=== PATIENT | female | born 1990 | race Hispanic/Latino ===

== ENCOUNTER 2020-05-22 06:52 | Emergency (ER) | payer OTHER ==
[~2020-05-22] VITALS: Ht 162.6 cm; Wt 65.0 kg
[2020-05-22] MEDS ORDERED: NS 1,000 ML IV ONE (07:15)
[2020-05-22 07:52] LABS: BASO # 0.1 10^3/uL (0.0-0.2); BASO % 0.5 % (0.0-1.0); EOS # 0.1 10^3/uL (0.0-0.5); HEMATOCRIT 37.3 % (36.0-47.0); HEMOGLOBIN 11.9 g/dl (12.0-15.5); LYMPH # 1.1 10^3/uL (1.5-5.0); LYMPH % 9.4 % (24.0-44.0); MEAN CORPUSCULAR HEMOGLOBIN 26.2 pg (27.0-33.0); MEAN CORPUSCULAR HGB CONC 31.9 g/dl (32.0-36.5); MEAN CORPUSCULAR VOLUME 82.2 fl (80.0-96.0); MONO # 0.8 10^3/uL (0.0-0.8); MONO % 6.9 % (0.0-5.0); NEUTROPHILS # 9.4 10^3/uL (1.5-8.5); NEUTROPHILS % 81.9 % (36.0-66.0); PLATELET COUNT, AUTOMATED 275 10^3/uL (150-450); RED BLOOD COUNT 4.54 10^6/uL (4.00-5.40); WHITE BLOOD COUNT 11.5 10^3/uL (4.0-10.0)
[2020-05-22] MEDS ORDERED: KETOROLAC 30 MG/ML 1ML VIAL IV ONE (08:00)
[2020-05-22] MEDS ORDERED: KETOROLAC 30 MG/ML 1ML VIAL As Ordered ONE ×2 (08:01→08:03)
[2020-05-22 08:18] LABS: ALBUMIN 3.5 GM/DL (3.2-5.2); ALT/SGPT 15 U/L (12-78); BILIRUBIN,DIRECT 0.1 MG/DL (0.0-0.2); BILIRUBIN,TOTAL 0.4 MG/DL (0.2-1.0); CK-MB VALUE MASS < 1.0 NG/ML (<3.6); CPK CREATINE PHOSPHOKINASE 95 U/L (26-192); LIPASE 72 U/L (73-393); MB/CK RELATIVE INDEX 1.05 (< OR =4); TOTAL PROTEIN 6.9 GM/DL (6.4-8.2); TROPONIN I < 0.02 NG/ML (< 0.10)
[2020-05-22] MEDS ORDERED: TRAZ-186 PO (08:38)
[2020-05-22] MEDS ORDERED: LEXA1TAB2 PO (08:38)
[2020-05-22] MEDS ORDERED: ISOVUE-370 76% 100ML VIAL As Ordered ONE (08:45)
--- NOTE | 2020-05-22 09:05 | REP ---
PELVIC SONOGRAPHY: HISTORY: Severe cramping. FINDINGS: Transabdominal and transvaginal scanning are performed. Uterine dimensions are normal and 7.1 x 4.4 x 4.6 cm. Endometrial echo 0.9 cm thick. There is a Nabothian cyst in the cervix. Visualized urinary bladder carmona are smooth. There is a mild amount of cul-de-sac fluid consistent with physiologic fluid. Normal ovaries are seen. The right ovary measures 2.7 x 1.8 x 2.2 cm. Left ovary dimensions are 3.4 x 1.9 x 1.9 cm. Doppler flow is present in both ovaries. Resistive indices are 0.5 3.47 on the right and left respectively. IMPRESSION: No significant abnormality. Physiologic fluid in the cul-de-sac. Small Nabothian cyst. Normal ovaries and uterus. Electronically Signed by Sandro Barton MD 05/22/2020 11:16 A
[2020-05-22 09:26] VITALS: BP 100/62
--- NOTE | 2020-05-22 09:33 | REP ---
CT ABDOMEN AND PELVIS WITH IV CONTRAST: TECHNIQUE: Axial contrast-enhanced images from the lung bases to the pubic symphysis using 100 mL Isovue-370 intravenous contrast material with multiplanar reformations. The visualized lung bases are clear. The liver, spleen, adrenals, pancreas and kidneys are normal in appearance. There is no abdominal aortic aneurysm. There is no adenopathy. There is no free air. There is no bowel wall thickening. The appendix is normal. No pelvic mass is seen. Mild free fluid in the pelvis is likely physiologic. Urinary bladder is not well distended and not well evaluated. IMPRESSION: Mild free fluid in the pelvis is likely physiologic. Normal appendix. No acute findings. Electronically Signed by Tito Chu MD 05/23/2020 04:00 P
== END 2020-05-22 09:46 | disposition home or self-care (01) ==
LOC: M ED 06:52 → EDBD 06:52 → M ED 09:46
DX: N94.6 Dysmenorrhea, unspecified (principal); I10 Essential (primary) hypertension; Z79.899 Other long term (current) drug therapy
CPT/HCPCS: 74177; 76830; 76856; 80047; 80076; 81001; 82550; 82553; 83690; 84484; 84702; 85025; 93976; 96361; 96374; 99284; J1885; Q9967

== ENCOUNTER 2021-01-17 17:45 | Emergency (ER) | payer OTHER ==
[~2021-01-17] VITALS: Ht 162.6 cm; Wt 74.5 kg
[~2021-01-17 17:45] MED LIST: LEXA1TAB2 PO; TRAZ-186 PO
--- OUTSIDE RECORDS SUMMARY | 2021-01-17 17:51 | CCD ---
Author Author [facility] Address Unknown Phone Unavailable Support Name Relationship Address Phone [facility] Next Of Kin [address] [place] [address] Unavailable Re-disclosure Warning The records that you are about to access may contain information from federally-assisted alcohol or drug abuse programs. If such information is present, then the following federally mandated warning applies: This information has been disclosed to you from records protected by federal confidentiality rules (42 CFR part 2). The federal rules prohibit you from making any further disclosure of this information unless further disclosure is expressly permitted by the written consent of the person to whom it pertains or as otherwise permitted by 42 CFR part 2. A general authorization for the release of medical or other information is NOT sufficient for this purpose. The Federal rules restrict any use of the information to criminally investigate or prosecute any alcohol or drug abuse patient.The records that you are about to access may contain highly sensitive health information, the redisclosure of which is protected by Article 27-F of the [facility] Public Health law. If you continue you may have access to information: Regarding HIV / AIDS; Provided by facilities licensed or operated by the [facility] Office of Mental Health; or Provided by the [facility] Office for People With Developmental Disabilities. If such information is present, then the following [facility] mandated warning applies: This information has been disclosed to you from confidential records which are protected by state law. State law prohibits you from making any further disclosure of this information without the specific written consent of the person to whom it pertains, or as otherwise permitted by law. Any unauthorized further disclosure in violation of state law may result in a fine or custodial sentence or both. A general authorization for the release of medical or other information is NOT sufficient authorization for further disc losure. Insurance Providers Payer name Policy type / Coverage type Policy ID Covered green party ID Covered green party's relationship to jackson Policy Jackson Plan Information [facility] [employer] [id number]
[2021-01-17] MEDS ORDERED: ACETAMINOPHEN 500 MG TAB PO ONE (18:45)
--- OUTSIDE RECORDS SUMMARY | 2021-01-17 18:52 | CCD ---
Author Author [facility] Organization [facility] Address Unknown Phone Unavailable Support Name Relationship Address Phone [facility] Next Of Kin [address] [place], [place] [id number] [facility] Next Of Kin [address] [place] [address] Unavailable Re-disclosure Warning The records that you [...] is protected by Article 27-F of the [facility] Public Health law. If you continue you may have access to information: Regarding HIV / AIDS; Provided by facilities licensed or operated by the [facility] Office of Mental Health; or Provided by the [facility] Office for People With Developmental Disabilities. If such information is present, then the following [facility] mandated warning applies: This information has [...] law may result in a fine or longterm sentence or both. A general authorization for the release of medical or other information is NOT sufficient authorization for further disc losure. Insurance Providers Payer name Policy type / Coverage type Policy ID Covered libertarian ID Covered libertarian's relationship to jackson Policy Jackson Plan Information [facility] [employer] [id number]
[2021-01-17 20:10] VITALS: BP 137/83
== END 2021-01-17 20:19 | disposition home or self-care (01) ==
LOC: M ED 17:45
DX: J06.9 Acute upper respiratory infection, unspecified (principal); B34.9 Viral infection, unspecified; F31.9 Bipolar disorder, unspecified; Z82.49 Family history of ischemic heart disease and other diseases of the circulatory system; Z79.899 Other long term (current) drug therapy
CPT/HCPCS: 87804; 87880; 99284; U0003

== ENCOUNTER 2021-09-03 10:01 | Emergency (ER) | payer OTHER ==
[~2021-09-03] VITALS: Ht 162.6 cm; Wt 76.2 kg
[2021-09-03 10:02] VITALS: BP 143/88
[2021-09-03] MEDS ORDERED: ACETAMINOPHEN 500 MG TAB PO ONE (11:55)
[2021-09-03 12:14] VITALS: O2SAT 100
== END 2021-09-03 12:51 | disposition home or self-care (01) ==
LOC: M ED 10:01
DX: J06.9 Acute upper respiratory infection, unspecified (principal); B34.9 Viral infection, unspecified; Z20.822 Contact with and (suspected) exposure to COVID-19; R05.9 Cough, unspecified; R51.9 Headache, unspecified; F32.9 Major depressive disorder, single episode, unspecified; F41.9 Anxiety disorder, unspecified; Z79.899 Other long term (current) drug therapy

== ENCOUNTER 2022-07-23 17:35 | Inpatient (IN) | payer OTHER ==
[~2022-07-23] VITALS: Ht 162.6 cm; Wt 71.0 kg
[2022-07-23 19:45] LABS: HEMATOCRIT 33.1 % (36.0-47.0); MEAN CORPUSCULAR HEMOGLOBIN 23.9 pg (27.0-33.0); MEAN CORPUSCULAR HGB CONC 30.2 g/dl (32.0-36.5); MEAN CORPUSCULAR VOLUME 79.2 fl (80.0-96.0); PLATELET COUNT, AUTOMATED 317 10^3/uL (150-450); RED BLOOD COUNT 4.18 10^6/uL (4.00-5.40); WHITE BLOOD COUNT 6.6 10^3/uL (4.0-10.0)
[2022-07-23 20:14] LABS: RSV AMPLIFICATION NEGATIVE (NEGATIVE)
[2022-07-23 20:36] LABS: ACETAMINOPHEN LEVEL < 2.0 UG/ML (10.0-30.0); ALBUMIN 3.5 GM/DL (3.2-5.2); ALT/SGPT 22 U/L (12-78); BILIRUBIN,DIRECT 0.1 MG/DL (0.0-0.2); BILIRUBIN,TOTAL 0.2 MG/DL (0.2-1.0); BLOOD UREA NITROGEN 12 MG/DL (7-18); CALCIUM LEVEL 8.6 MG/DL (8.5-10.1); CARBON DIOXIDE LEVEL 24 MEQ/L (21-32); CHLORIDE LEVEL 109 MEQ/L (98-107); CREATININE FOR GFR 0.78 MG/DL (0.55-1.30); ETHYL ALCOHOL (ETHANOL) 0.006 % (0.000-0.010); GLOMERULAR FILTRATION RATE > 60.0 (>60); GLUCOSE, FASTING 93 MG/DL (70-100); SALICYLATE LEVEL < 1.7 MG/DL (5.0-30.0); SODIUM LEVEL 139 MEQ/L (136-145); TOTAL PROTEIN 6.9 GM/DL (6.4-8.2)
[2022-07-23 21:04] LABS: HCG, SERUM QUALITATIVE NEGATIVE (NEGATIVE)
[2022-07-23] MEDS ORDERED: PEPC10TA6 PO (22:11)
[2022-07-23] MEDS ORDERED: TRAZ-186 PO (22:11)
[2022-07-23] MEDS ORDERED: HOME MED LIST COMPLETE! XX SCH (22:15)
[2022-07-23 22:32] LABS: AMPHETAMINES LEVEL URINE NEGATIVE (NEGATIVE); BARBITURATES URINE NEGATIVE (NEGATIVE); BENZODIAZEPINES URINE NEGATIVE (NEGATIVE); CANNABINOIDS URINE NEGATIVE (NEGATIVE); COCAINE METABOLITE URINE NEGATIVE (NEGATIVE); METHADONE URINE NEGATIVE (NEGATIVE); OPIATES URINE NEGATIVE (NEGATIVE); PHENCYCLIDINE URINE NEGATIVE (NEGATIVE)
[2022-07-24] MEDS ORDERED: traZODone 50 MG TAB PO ONE ×2 (00:30→01:20)
[2022-07-24] MEDS ORDERED: FAMOTIDINE 20 MG TAB PO ONE (00:35)
[2022-07-24] MEDS ORDERED: ESCITALOPRAM OXALATE 10 MG TAB (LEXAPRO) PO ONE (00:35)
[2022-07-24] MEDS: ESCITALOPRAM OXALATE 10 MG TAB (LEXAPRO) PO SCH (10:41)
[2022-07-24] MEDS: FAMOTIDINE 20 MG TAB PO SCH (10:41)
[2022-07-24] MEDS ORDERED: traZODone 50 MG TAB PO SCH (21:00)
[2022-07-24] MEDS ORDERED: diphenhydrAMINE 25MG CAP PO ONE (21:50)
[2022-07-25] MEDS: NICOTINE 21MG/24HR 1 EA TRANSDERMAL TD SCH (09:00)
[2022-07-25] MEDS: FAMOTIDINE 20 MG TAB PO SCH (11:49)
[2022-07-25] MEDS: ESCITALOPRAM OXALATE 10 MG TAB (LEXAPRO) PO SCH (11:50)
[2022-07-25] MEDS ORDERED: MAALOX 30 ML SUSP *UDC PO PRN (14:10)
[2022-07-25] MEDS ORDERED: MOM 30ML SUSPENSION UDC PO PRN (14:10)
[2022-07-25] MEDS ORDERED: traZODone 50 MG TAB PO PRN (14:10)
[2022-07-25] MEDS ORDERED: FAMOTIDINE 20 MG TAB PO PRN (14:10)
[2022-07-25 16:25] VITALS: BP 118/71
[2022-07-25] MEDS: IBUPROFEN 400MG TAB PO PRN (20:28)
[2022-07-25] MEDS ORDERED: traZODone 50 MG TAB PO SCH (21:00)
[2022-07-26 06:34] VITALS: BP 138/70
[2022-07-26] MEDS: NICOTINE 21MG/24HR 1 EA TRANSDERMAL TD SCH (08:49)
[2022-07-26] MEDS ORDERED: ESCITALOPRAM OXALATE 10 MG TAB (LEXAPRO) PO SCH (09:00)
[2022-07-26] MEDS: IBUPROFEN 400MG TAB PO PRN (12:03)
[2022-07-26] MEDS: traZODone 100 MG TAB PO SCH (21:28)
[2022-07-27 06:25] VITALS: BP 110/62
[2022-07-27 08:25] LABS: PERCENT SATURATION 3.9 % (13.2-45.0)
[2022-07-27] MEDS: PARoxetine 20MG TABLET PO SCH (08:58)
[2022-07-27 19:46] VITALS: BP 142/83
[2022-07-27] MEDS: traZODone 100 MG TAB PO SCH (21:15)
[2022-07-27] MEDS: diphenhydrAMINE 25MG CAP PO PRN (21:16)
[2022-07-28 06:08] VITALS: BP 106/64
[2022-07-28] MEDS: PARoxetine 20MG TABLET PO SCH (09:38)
[2022-07-28 11:56] LABS: FOLATE 9.6 NG/ML (>5.4)
[2022-07-28 16:40] VITALS: BP 105/56
[2022-07-28] MEDS ORDERED: traZODone 100 MG TAB PO SCH (21:00)
[2022-07-29 06:19] VITALS: BP 119/58
[2022-07-29] MEDS: buPROPion **XL** TABLET 150MG (WELLBUTRIN XL) PO SCH (09:16)
[2022-07-29 16:54] VITALS: BP 116/59
[2022-07-29] MEDS: PARoxetine 20MG TABLET PO SCH (21:55)
[2022-07-29] MEDS: traZODone 50 MG TAB PO SCH (21:56)
[2022-07-30 07:20] VITALS: BP 120/74
[2022-07-30] MEDS: buPROPion **XL** TABLET 150MG (WELLBUTRIN XL) PO SCH (08:58)
[2022-07-30] MEDS: hydrOXYzine 50 MG TAB PO SCH ×2 (12:14→18:06)
[2022-07-30 16:30] VITALS: BP 127/73
[2022-07-30] MEDS: traZODone 50 MG TAB PO SCH (21:54)
[2022-07-30] MEDS: PARoxetine 20MG TABLET PO SCH (21:54)
[2022-07-30] MEDS: ARIPiprazole 2 MG TAB PO SCH (21:54)
[2022-07-31] MEDS: hydrOXYzine 50 MG TAB PO SCH ×5 (00:22→23:54)
[2022-07-31 07:02] VITALS: BP 130/62
[2022-07-31 08:56] LABS: CHOLESTEROL RISK RATIO 4.127 (<5)
[2022-07-31] MEDS: buPROPion **XL** TABLET 150MG (WELLBUTRIN XL) PO SCH (09:09)
[2022-07-31 18:18] VITALS: BP 124/63
[2022-07-31] MEDS: PARoxetine 20MG TABLET PO SCH (20:28)
[2022-07-31] MEDS: ARIPiprazole 2 MG TAB PO SCH (20:28)
[2022-07-31] MEDS: traZODone 50 MG TAB PO SCH (20:28)
[2022-08-01] MEDS: hydrOXYzine 50 MG TAB PO SCH ×3 (05:48→18:10)
[2022-08-01 06:12] VITALS: BP 109/56
[2022-08-01] MEDS: buPROPion **XL** TABLET 150MG (WELLBUTRIN XL) PO SCH (09:13)
[2022-08-01 16:14] VITALS: BP 126/70
[2022-08-01] MEDS: ARIPiprazole 2 MG TAB PO SCH (20:32)
[2022-08-01] MEDS: PARoxetine 20MG TABLET PO SCH (20:32)
[2022-08-01] MEDS: traZODone 50 MG TAB PO SCH (20:33)
[2022-08-02] MEDS: hydrOXYzine 50 MG TAB PO SCH ×4 (00:09→18:07)
[2022-08-02 06:25] VITALS: BP 118/56
[2022-08-02] MEDS: buPROPion **XL** TABLET 150MG (WELLBUTRIN XL) PO SCH (09:59)
[2022-08-02 16:09] VITALS: BP 120/78
[2022-08-02] MEDS: PARoxetine 20MG TABLET PO SCH (20:50)
[2022-08-02] MEDS: ARIPiprazole 2 MG TAB PO SCH (20:50)
[2022-08-02] MEDS: traZODone 50 MG TAB PO SCH (20:50)
[2022-08-03] MEDS: hydrOXYzine 50 MG TAB PO SCH ×2 (00:37→06:01)
[2022-08-03 06:28] VITALS: BP 116/75
[2022-08-03] MEDS: buPROPion **XL** TABLET 150MG (WELLBUTRIN XL) PO SCH (08:32)
[2022-08-03] MEDS: diphenhydrAMINE 25MG CAP PO PRN (11:38)
[2022-08-03 16:15] VITALS: BP 138/70
[2022-08-03] MEDS: PARoxetine 20MG TABLET PO SCH (21:10)
[2022-08-03] MEDS: traZODone 50 MG TAB PO SCH (21:10)
[2022-08-03] MEDS: ARIPiprazole 2 MG TAB PO SCH (21:10)
[2022-08-04 06:03] VITALS: BP 104/57
[2022-08-04] MEDS: buPROPion **XL** TABLET 150MG (WELLBUTRIN XL) PO SCH (07:36)
[2022-08-04] MEDS: diphenhydrAMINE 25MG CAP PO PRN (08:54)
[2022-08-04] MEDS: hydrOXYzine 50 MG TAB PO PRN (13:21)
[2022-08-04 18:13] VITALS: BP 118/67
[2022-08-04] MEDS: traZODone 50 MG TAB PO SCH (20:28)
[2022-08-04] MEDS: PARoxetine 20MG TABLET PO SCH (20:28)
[2022-08-04] MEDS: ARIPiprazole 2 MG TAB PO SCH (20:28)
[2022-08-04] MEDS ORDERED: traZODone 50 MG TAB PO SCH (21:00)
[2022-08-05 06:10] VITALS: BP 113/66
[2022-08-05] MEDS: hydrOXYzine 50 MG TAB PO PRN ×3 (06:53→20:13)
[2022-08-05] MEDS: buPROPion **XL** TABLET 150MG (WELLBUTRIN XL) PO SCH (08:39)
[2022-08-05 17:39] VITALS: BP 134/69
[2022-08-05] MEDS: ARIPiprazole 2 MG TAB PO SCH (20:59)
[2022-08-05] MEDS: traZODone 50 MG TAB PO SCH (20:59)
[2022-08-05] MEDS: PARoxetine 20MG TABLET PO SCH (20:59)
[2022-08-06] MEDS: hydrOXYzine 50 MG TAB PO PRN ×3 (06:09→19:03)
[2022-08-06 06:57] VITALS: BP 112/78
[2022-08-06] MEDS: buPROPion **XL** TABLET 150MG (WELLBUTRIN XL) PO SCH (10:15)
[2022-08-06] MEDS: ARIPiprazole 2 MG TAB PO SCH (20:58)
[2022-08-06] MEDS: PARoxetine 20MG TABLET PO SCH (20:58)
[2022-08-06] MEDS: traZODone 50 MG TAB PO SCH (22:51)
[2022-08-07 06:19] VITALS: BP 107/56
[2022-08-07] MEDS: hydrOXYzine 50 MG TAB PO PRN ×2 (09:33→17:38)
[2022-08-07] MEDS: buPROPion **XL** TABLET 150MG (WELLBUTRIN XL) PO SCH (09:33)
[2022-08-07] MEDS ORDERED: ABIL1TAB13 PO (14:00)
[2022-08-07] MEDS ORDERED: HYDR50TA70 PO (14:00)
[2022-08-07] MEDS ORDERED: BUPR150T12 PO (14:00)
[2022-08-07] MEDS ORDERED: TRAZ-252 PO (14:00)
[2022-08-07] MEDS ORDERED: PARO20TA3 PO (14:00)
[2022-08-07 17:51] VITALS: BP 120/78
[2022-08-07] MEDS: PARoxetine 20MG TABLET PO SCH (21:46)
[2022-08-07] MEDS: ARIPiprazole 2 MG TAB PO SCH (21:46)
[2022-08-07] MEDS: traZODone 50 MG TAB PO SCH (21:47)
== END 2022-08-08 04:45 | DRG 882 ==
LOC: M ED 18:50 → M ED INP 07-25 14:09 → M PSY 07-25 16:01
PROVIDERS: ADMIT Student in an Organized Health Care Education/Training Program; ATTEND Student in an Organized Health Care Education/Training Program
DX: F43.10 Post-traumatic stress disorder, unspecified (principal); R45.851 Suicidal ideations; F41.0 Panic disorder [episodic paroxysmal anxiety]; Z59.89 Other problems related to housing and economic circumstances; G47.00 Insomnia, unspecified; Z79.899 Other long term (current) drug therapy; D50.9 Iron deficiency anemia, unspecified

== ENCOUNTER → 2023-04-20 | Outpatient (CLI) | payer OTHER ==
[~2023-04-20] MED LIST changes: +ABIL1TAB13 PO; +BUPR150T12 PO; +HYDR50TA70 PO; +PARO20TA3 PO; +PEPC10TA6 PO; +TRAZ-252 PO
== END ==
LOC: M PLAIMG 11:53
PROVIDERS: ATTEND Nurse Practitioner Family
DX: S60.042A Contusion of left ring finger without damage to nail, initial encounter (principal); S60.021A Contusion of right index finger without damage to nail, initial encounter; S60.051A Contusion of right little finger without damage to nail, initial encounter; X58.XXXA Exposure to other specified factors, initial encounter; Y92.9 Unspecified place or not applicable